=== PATIENT | female | born 1955 | race Caucasian/White ===

== ENCOUNTER 2018-06-11 11:05 | Emergency (ER) | payer MEDICARE, OTHER ==
[2018-06-11] MEDS ORDERED: IPRATROPIUM-ALBUTEROL 3 ML NEB INHALATION STA (11:13)
[2018-06-11] MEDS ORDERED: methylPREDNISolone SOD SUCCI 125 MG/2 ML VIAL IV STA (11:13)
[2018-06-11 11:19] VITALS: TEMP 98.3
--- NOTE | 2018-06-11 11:22 | ED ---
General Adult HPI - General Stated complaint: Chest pain Time Seen by Provider: 06/11/18 11:09 Source: patient, EMS, RN notes reviewed, old records reviewed Mode of arrival: EMS Limitations: no limitations - History of Present Illness Initial comments: 62-year-old female presenting with chief complaint dyspnea. Patient states she called EMS with chest tightness and dyspnea, she was found by EMS smoking in her car. She does have history of COPD and is a current daily smoker. She reports some central chest tightness. No significant chest pain. No reported history of CHF although she does report chronic lower extremity swelling and fluid drainage. Denies abdominal pain. Denies nausea vomiting or diarrhea. Denies cough. Denies URI symptoms. Denies fever or chills. - Related Data Home Medications Medication Instructions Recorded Confirmed Rivaroxaban [Xarelto] 20 mg PO DAILY 08/17/16 06/11/18 Tiotropium 18 Mcg/Puff [Spiriva] 1 puff INHALATION RT-DAILY 08/17/16 06/11/18 Albuterol Sulfate [Proair Hfa] 1 puff INHALATION RT-TID 06/10/18 06/11/18 Simvastatin [Zocor] 20 mg PO HS 06/10/18 06/11/18 clonazePAM [KlonoPIN] 1 mg PO TID PRN 06/10/18 06/11/18 oxyCODONE HCL 30 mg PO PC-TID 06/10/18 06/11/18 Fluticasone/Vilanterol [Breo 1 dose INHALATION RT-DAILY 06/11/18 06/11/18 Ellipta 100-25 Mcg Inhaler] Previous Rx's Medication Instructions Recorded Azithromycin [Zithromax Z-pack] 0 mg PO DIRECTED #6 tab 06/11/18 Allergies Allergy/AdvReac Type Severity Reaction Status Date / Time quetiapine [From Seroquel] AdvReac Severe Unusual Verified 06/11/18 12:36 Sensations Review of Systems ROS Statement: Those systems with pertinent positive or pertinent negative responses have been documented in the HPI. ROS Other: All systems not noted in ROS Statement are negative. Past Medical History Past Medical History: Cancer, COPD, Hyperlipidemia, Pulmonary Embolus (PE), Skin Disorder Additional Past Medical History / Comment(s): Degenerative disc disease, lumbar spinal stenosis cervical, skin CA, wound on katlyn legs History of Any Multi-Drug Resistant Organisms: None Reported Past Surgical History: No Surgical Hx Reported Past Anesthesia/Blood Transfusion Reactions: No Reported Reaction Past Psychological History: Bipolar Smoking Status: Current every day smoker Past Alcohol Use History: None Reported Past Drug Use History: Marijuana - Past Family History Mother Family Medical History: Cancer Additional Family Medical History / Comment(s): breast cancer Father Family Medical History: Cancer Additional Family Medical History / Comment(s): colon cancer General Exam Limitations: no limitations General appearance: alert, in no apparent distress Head exam: Present: atraumatic, normocephalic Eye exam: Present: normal appearance, PERRL ENT exam: Present: normal exam Neck exam: Present: normal inspection Respiratory exam: Present: decreased breath sounds, prolonged expiratory. Absent: respiratory distress Cardiovascular Exam: Present: regular rate, normal rhythm GI/Abdominal exam: Present: soft. Absent: distended, tenderness Extremities exam: Present: pedal edema ([place]). Absent: calf tenderness Neurological exam: Present: alert, oriented X3 Psychiatric exam: Present: normal affect, normal mood Skin exam: Present: warm. Absent: cyanosis, diaphoretic Course Vital Signs 06/11/18 06/11/18 06/11/18 11:08 11:38 11:45 Temperature 98.3 F Pulse Rate 79 62 62 Respiratory 22 Rate Blood Pressure 147/69 O2 Sat by Pulse 100 Oximetry 06/11/18 12:45 Temperature Pulse Rate 64 Respiratory 20 Rate Blood Pressure 144/64 O2 Sat by Pulse 98 Oximetry - Reevaluation(s) Reevaluation #1: 06/11/18 12:15 Patient presenting with dyspnea, refuse steroids, states that steroids give her a rash. EKG Findings - EKG Comments: EKG Findings:: EKG: Normal sinus rhythm, low voltage QRS, no ST segment elevation, rate of 66, PA interval 152, QRS duration 70, QTC 423 Medical Decision Making - Medical Decision Making 62-year-old female presenting with chief complaint of dyspnea. Workup is in progress in the emergency department with patient requests that she be discharged. At this time it is found that patient does have an anemia of 7.7 with previous baseline from 2 years ago of 12. She is in acute renal failure creatinine 2.43 from a baseline of 0.94. It is highly recommended that the patient stay for monitoring. I would like to obtain a Hemoccult, patient refuses. She wants to be discharged. She does not want stay for IV hydration. Chest x-ray is suggestive of possible interstitial pneumonia with COPD versus heart failure. Again patient is refusing admission despite all these abnormal findings. I will requests that the patient sign out AGAINST MEDICAL ADVICE. She will be given a a prescription of azithromycin to cover possible atypical pneumonias. Likely her dyspnea is multifactorial including anemia. She does have an outpatient primary care physician. Is highly encouraged the patient in follow up as soon as possible with this physician and return with any worsening or changing symptoms. - Lab Data Result diagrams: 06/11/18 11:50 06/11/18 11:50 Lab Results 06/11/18 06/11/18 06/11/18 Range/Units 11:50 11:50 11:50 WBC 4.9 (3.8-10.6) k/uL RBC 2.54 L (3.80-5.40) m/uL Hgb 7.7 L (11.4-16.0) gm/dL Hct 24.8 L (34.0-46.0) % MCV 97.5 (80.0-100.0) fL MCH 30.3 (25.0-35.0) pg MCHC 31.1 (31.0-37.0) g/dL RDW 16.4 H (11.5-15.5) % Plt Count 230 (150-450) k/uL Neutrophils % 56 % Lymphocytes % 34 % Monocytes % 6 % Eosinophils % 1 % Basophils % 1 % Neutrophils # 2.8 (1.3-7.7) k/uL Lymphocytes # 1.7 (1.0-4.8) k/uL Monocytes # 0.3 (0-1.0) k/uL Eosinophils # 0.1 (0-0.7) k/uL Basophils # 0.0 (0-0.2) k/uL Hypochromasia Moderate Anisocytosis Slight Macrocytosis Slight PT (9.0-12.0) sec INR (<1.2) APTT (22.0-30.0) sec Sodium 143 (137-145) mmol/L Potassium 4.1 (3.5-5.1) mmol/L Chloride 110 H (98-107) mmol/L Carbon Dioxide 25 (22-30) mmol/L Anion Gap 8 mmol/L BUN 27 H (7-17) mg/dL Creatinine 2.43 H (0.52-1.04) mg/dL Est GFR (CKD-EPI)AfAm 24 (>60 ml/min/1.73 sqM) Est GFR (CKD-EPI)NonAf 21 (>60 ml/min/1.73 sqM) Glucose 83 (74-99) mg/dL Plasma Lactic Acid Richard (0.7-2.0) mmol/L Calcium 8.3 L (8.4-10.2) mg/dL Magnesium 2.0 (1.6-2.3) mg/dL Total Bilirubin 0.6 (0.2-1.3) mg/dL AST 20 (14-36) U/L ALT 25 (9-52) U/L Alkaline Phosphatase 63 (38-126) U/L Total Creatine Kinase 41 (30-135) U/L CK-MB (CK-2) 1.2 (0.0-2.4) ng/mL CK-MB (CK-2) Rel Index 2.9 Troponin I 0.013 (0.000-0.034) ng/mL Total Protein 6.2 L (6.3-8.2) g/dL Albumin 3.3 L (3.5-5.0) g/dL 06/11/18 06/11/18 Range/Units 11:50 11:50 WBC (3.8-10.6) k/uL RBC (3.80-5.40) m/uL Hgb (11.4-16.0) gm/dL Hct (34.0-46.0) % MCV (80.0-100.0) fL MCH (25.0-35.0) pg MCHC (31.0-37.0) g/dL RDW (11.5-15.5) % Plt Count (150-450) k/uL Neutrophils % % Lymphocytes % % Monocytes % % Eosinophils % % Basophils % % Neutrophils # (1.3-7.7) k/uL Lymphocytes # (1.0-4.8) k/uL Monocytes # (0-1.0) k/uL Eosinophils # (0-0.7) k/uL Basophils # (0-0.2) k/uL Hypochromasia Anisocytosis Macrocytosis PT 10.8 (9.0-12.0) sec INR 1.1 (<1.2) APTT 25.4 (22.0-30.0) sec Sodium (137-145) mmol/L Potassium (3.5-5.1) mmol/L Chloride (98-107) mmol/L Carbon Dioxide (22-30) mmol/L Anion Gap mmol/L BUN (7-17) mg/dL Creatinine (0.52-1.04) mg/dL Est GFR (CKD-EPI)AfAm (>60 ml/min/1.73 sqM) Est GFR (CKD-EPI)NonAf (>60 ml/min/1.73 sqM) Glucose (74-99) mg/dL Plasma Lactic Acid Richard 1.2 (0.7-2.0) mmol/L Calcium (8.4-10.2) mg/dL Magnesium (1.6-2.3) mg/dL Total Bilirubin (0.2-1.3) mg/dL AST (14-36) U/L ALT (9-52) U/L Alkaline Phosphatase (38-126) U/L Total Creatine Kinase (30-135) U/L CK-MB (CK-2) (0.0-2.4) ng/mL CK-MB (CK-2) Rel Index Troponin I (0.000-0.034) ng/mL Total Protein (6.3-8.2) g/dL Albumin (3.5-5.0) g/dL Disposition Clinical Impression: Anemia, Community acquired pneumonia, COPD (chronic obstructive pulmonary disease), CHARLEY (acute kidney injury), Dehydration Disposition: Left Against Medical Advice Condition: Fair Instructions: Anemia (ED), COPD (Chronic Obstructive Pulmonary Disease) (ED), Pneumonia (ED), Acute Kidney Injury (DC) Prescriptions: Azithromycin [Zithromax Z-pack] 0 mg PO DIRECTED #6 tab Is patient prescribed a controlled substance at d/c from ED?: No Referrals: Basilio Love MD [Primary Care Provider] - 1-2 days Time of Disposition: 13:00
[2018-06-11 12:08] LABS: Anisocytosis Slight; Basophils % (A) 1 %; Eosinophils # (A) 0.1 k/uL (0-0.7); Eosinophils % (A) 1 %; HCT 24.8 % (34.0-46.0); HGB 7.7 gm/dL (11.4-16.0); Hypochromasia Moderate; Lymphocytes # (A) 1.7 k/uL (1.0-4.8); Lymphocytes % (A) 34 %; MCH 30.3 pg (25.0-35.0); MCHC 31.1 g/dL (31.0-37.0); MCV 97.5 fL (80.0-100.0); Macrocytosis Slight; Mean Platelet Volume 7.3; Monocytes # (A) 0.3 k/uL (0-1.0); Monocytes % (A) 6 %; Neutrophils # (A) 2.8 k/uL (1.3-7.7); Neutrophils % (A) 56 %; Platelet Count 230 k/uL (150-450); RBC 2.54 m/uL (3.80-5.40); RDW 16.4 % (11.5-15.5); WBC 4.9 k/uL (3.8-10.6)
[2018-06-11 12:16] LABS: INR 1.1 (<1.2); Partial Thromboplastin Time 25.4 sec (22.0-30.0); Prothrombin Time 10.8 sec (9.0-12.0)
[2018-06-11 12:19] LABS: Albumin 3.3 g/dL (3.5-5.0); Calcium 8.3 mg/dL (8.4-10.2); Potassium 4.1 mmol/L (3.5-5.1); Total Bilirubin 0.6 mg/dL (0.2-1.3); Total Protein 6.2 g/dL (6.3-8.2)
[2018-06-11 12:44] LABS: Creatine Kinase MB 1.2 ng/mL (0.0-2.4); Troponin I 0.013 ng/mL (0.000-0.034)
[2018-06-11 12:48] VITALS: BP 144/64; PULSE 64; RESP 20
--- NOTE | 2018-06-11 12:51 | XR ---
EXAMINATION TYPE: XR chest 2V DATE OF EXAM: 06/11/2018 HISTORY: difficulty breathing. REFERENCE: Previous study dated 08/17/2016. FINDINGS: Lung volumes are prominent. Heart is upper limits of normal in size. Pulmonary vasculature appears within normal limits. There is interstitial change. This was not present in 2016. IMPRESSION: 1. CORRELATE FOR COPD. 2. INTERSTITIAL CHANGE MAY BE ACUTE OR CHRONIC. THIS MAY REPRESENT PULMONARY EDEMA BASED UPON ABNORMA L LUNG ARCHITECTURE. ATYPICAL PNEUMONIA COULD NOT BE EXCLUDED.
== END 2018-06-11 13:09 | disposition left against medical advice (07) ==
LOC: EC 11:05
DX: J18.9 Pneumonia, unspecified organism (principal); J44.0 Chronic obstructive pulmonary disease with (acute) lower respiratory infection; E86.0 Dehydration; N17.9 Acute kidney failure, unspecified; D64.9 Anemia, unspecified; J44.9 Chronic obstructive pulmonary disease, unspecified; E78.5 Hyperlipidemia, unspecified; F17.200 Nicotine dependence, unspecified, uncomplicated; Z88.8 Allergy status to other drugs, medicaments and biological substances; Z79.01 Long term (current) use of anticoagulants; Z79.51 Long term (current) use of inhaled steroids; Z79.891 Long term (current) use of opiate analgesic; Z79.899 Other long term (current) drug therapy; Z86.711 Personal history of pulmonary embolism; Z87.39 Personal history of other diseases of the musculoskeletal system and connective tissue; Z53.20 Procedure and treatment not carried out because of patient's decision for unspecified reasons
CPT/HCPCS: 36415; 71046; 80053; 82550; 82553; 83605; 83735; 83880; 84484; 85025; 85610; 85730; 87040; 93005; 94640; 99285

== ENCOUNTER 2018-08-06 00:44 | Inpatient (IN) | payer MEDICARE, OTHER ==
[2018-08-06] MEDS ORDERED: SODIUM CHLORIDE 0.9% 500 ML 500 ML IV STA (00:57)
[2018-08-06] MEDS ORDERED: SODIUM CHLORIDE 0.9% 1,000 ML IV STA (00:57)
--- NOTE | 2018-08-06 00:58 | ED ---
Weakness HPI - General Stated complaint: Weakness Time Seen by Provider: 08/06/18 00:46 Source: RN notes reviewed, old records reviewed - History of Present Illness Initial comments: Patient is here for evaluation of weakness and inability to ambulate occasional fevers. Patient states she does not feel well she is eating and drinking appropriately. She is denying any current pain she states she does have some back pain that is chronic in nature. Mild dysuria she does have history of chronic wounds chronic venous stasis ulcers with active wound VAC MD Complaint: generalized weakness, lack of energy, difficulty walking -: days(s) Location: generalized, LLE, RLE Severity: severe Severity scale (1-10): 10 Quality: constant Improves with: none Worsens with: movement Context: recent illness, history of similar Associated Symptoms: denies other symptoms - Related Data Home Medications Medication Instructions Recorded Confirmed Albuterol Sulfate [Proair Hfa] 1 puff INHALATION RT-TID 06/10/18 08/01/18 Simvastatin [Zocor] 20 mg PO HS 06/10/18 08/01/18 clonazePAM [KlonoPIN] 1 mg PO TID PRN 06/10/18 08/01/18 oxyCODONE HCL 30 mg PO PC-TID 06/10/18 08/01/18 Fluticasone/Vilanterol [Breo 1 dose INHALATION RT-DAILY 06/11/18 08/01/18 Ellipta 100-25 Mcg Inhaler] Fluticasone/Vilanterol [Breo 1 puff INHALATION DAILY 07/12/18 08/01/18 Ellipta 100-25 Mcg Inhaler] Oxybutynin ER [Ditropan Xl] 15 mg PO DAILY 07/25/18 08/01/18 Previous Rx's Medication Instructions Recorded Amoxic-Pot Clav 500-125 mg 1 tab PO Q12HR #28 tab 07/12/18 [Augmentin 500-125 mg] Nicotine 7Mg/24Hr Patch [Habitrol] 1 patch TRANSDERM DAILY #30 07/12/18 patch.[id number] Allergies Allergy/AdvReac Type Severity Reaction Status Date / Time quetiapine [From Seroquel] AdvReac Severe Unusual Verified 08/01/18 10:42 Sensations Review of Systems ROS Statement: Those systems with pertinent positive or pertinent negative responses have been documented in the HPI. ROS Other: All systems not noted in ROS Statement are negative. Past Medical History Past Medical History: Cancer, COPD, Hyperlipidemia, Pulmonary Embolus (PE), Skin Disorder Additional Past Medical History / Comment(s): Degenerative disc disease, lumbar spinal stenosis cervical, skin CA, wound on katlyn legs History of Any Multi-Drug Resistant Organisms: None Reported Past Surgical History: No Surgical Hx Reported Additional Past Surgical History / Comment(s): surgical debridement left gluteus June 2018 Past Anesthesia/Blood Transfusion Reactions: No Reported Reaction Past Psychological History: Bipolar Smoking Status: Current every day smoker Past Alcohol Use History: None Reported Additional Past Alcohol Use History / Comment(s): smoker since age 15 10cig/day Past Drug Use History: Marijuana Additional Drug Use History / Comment(s): medical marijuana card - Past Family History Mother Family Medical History: Cancer Additional Family Medical History / Comment(s): breast cancer Father Family Medical History: Cancer Additional Family Medical History / Comment(s): colon cancer General Exam General appearance: alert, lethargic, in distress Head exam: Present: atraumatic, normocephalic, normal inspection Eye exam: Present: normal appearance, PERRL, EOMI. Absent: scleral icterus, conjunctival injection, periorbital swelling ENT exam: Present: normal exam, mucous membranes moist Neck exam: Present: normal inspection. Absent: tenderness, meningismus, lymphadenopathy Respiratory exam: Present: normal lung sounds bilaterally. Absent: respiratory distress, wheezes, rales, rhonchi, stridor Cardiovascular Exam: Present: regular rate, normal rhythm, normal heart sounds. Absent: systolic murmur, diastolic murmur, rubs, gallop, clicks GI/Abdominal exam: Present: soft, normal bowel sounds. Absent: distended, tenderness, guarding, rebound, rigid Extremities exam: Present: normal inspection, full ROM, normal capillary refill. Absent: tenderness, pedal edema, joint swelling, calf tenderness Back exam: Present: normal inspection Neurological exam: Present: alert, oriented X3, CN II-XII intact Psychiatric exam: Present: normal affect, normal mood Skin exam: Present: warm, dry, intact, normal color. Absent: rash Course Vital Signs 08/06/18 08/06/18 01:19 03:19 Temperature 97.9 F 97.3 F L Pulse Rate 86 82 Respiratory 18 18 Rate Blood Pressure 101/83 111/80 O2 Sat by Pulse 98 98 Oximetry - Reevaluation(s) Reevaluation #1: Record is reviewed Patient does not feel better at THIS time EKG Findings - EKG Comments: EKG Findings:: EKG shows sinus rhythm rate of 80, NC 180, QRS 80, QTC 461 Medical Decision Making - Medical Decision Making 62 female the ER for evasive weakness urinary tract infection fever not feeling well multiple electrolyte abnormalities and chronic ulcers. Patient be admitted for IV antibiotics and evaluation by infectious disease - Lab Data Result diagrams: 08/06/18 01:30 08/06/18 01:30 Lab Results 08/06/18 08/06/18 08/06/18 Range/Units 01:30 01:30 01:30 WBC 9.6 (3.8-10.6) k/uL RBC 3.14 L (3.80-5.40) m/uL Hgb 9.2 L D (11.4-16.0) gm/dL Hct 28.0 L (34.0-46.0) % MCV 89.3 D (80.0-100.0) fL MCH 29.2 (25.0-35.0) pg MCHC 32.7 (31.0-37.0) g/dL RDW 15.8 H (11.5-15.5) % Plt Count 273 (150-450) k/uL Neutrophils % 63 % Lymphocytes % 26 % Monocytes % 7 % Eosinophils % 2 % Basophils % 1 % Neutrophils # 6.1 (1.3-7.7) k/uL Lymphocytes # 2.5 (1.0-4.8) k/uL Monocytes # 0.7 (0-1.0) k/uL Eosinophils # 0.2 (0-0.7) k/uL Basophils # 0.1 (0-0.2) k/uL PT (9.0-12.0) sec INR (<1.2) APTT (22.0-30.0) sec Sodium 137 (137-145) mmol/L Potassium 3.6 (3.5-5.1) mmol/L Chloride 104 (98-107) mmol/L Carbon Dioxide 23 (22-30) mmol/L Anion Gap 10 mmol/L BUN 33 H (7-17) mg/dL Creatinine 2.39 H (0.52-1.04) mg/dL Est GFR (CKD-EPI)AfAm 24 (>60 ml/min/1.73 sqM) Est GFR (CKD-EPI)NonAf 21 (>60 ml/min/1.73 sqM) Glucose 100 H (74-99) mg/dL Plasma Lactic Acid Richard (0.7-2.0) mmol/L Calcium 9.0 (8.4-10.2) mg/dL Phosphorus 5.7 H (2.5-4.5) mg/dL Magnesium 2.4 H (1.6-2.3) mg/dL Total Bilirubin 0.4 (0.2-1.3) mg/dL AST 18 (14-36) U/L ALT 18 (9-52) U/L Alkaline Phosphatase 92 (38-126) U/L Total Creatine Kinase 32 (30-135) U/L CK-MB (CK-2) 0.3 (0.0-2.4) ng/mL CK-MB (CK-2) Rel Index 0.9 Troponin I <0.012 (0.000-0.034) ng/mL Total Protein 6.6 (6.3-8.2) g/dL Albumin 3.4 L (3.5-5.0) g/dL Urine Color Urine Appearance (Clear) Urine pH (5.0-8.0) Ur Specific [place] (1.001-1.035) Urine Protein (Negative) Urine Glucose (UA) (Negative) Urine Ketones (Negative) Urine Blood (Negative) Urine Nitrite (Negative) Urine Bilirubin (Negative) Urine Urobilinogen (<2.0) mg/dL Ur Leukocyte Esterase (Negative) Urine RBC (0-5) /hpf Urine WBC (0-5) /hpf Urine WBC Clumps (None) /hpf Ur Squamous Epith Cells (0-4) /hpf Urine Bacteria (None) /hpf Urine Mucus (None) /hpf Influenza Type A RNA (Not Detectd) Influenza Type B (PCR) (Not Detectd) 08/06/18 08/06/18 08/06/18 Range/Units 01:30 01:30 01:30 WBC (3.8-10.6) k/uL RBC (3.80-5.40) m/uL Hgb (11.4-16.0) gm/dL Hct (34.0-46.0) % MCV (80.0-100.0) fL MCH (25.0-35.0) pg MCHC (31.0-37.0) g/dL RDW (11.5-15.5) % Plt Count (150-450) k/uL Neutrophils % % Lymphocytes % % Monocytes % % Eosinophils % % Basophils % % Neutrophils # (1.3-7.7) k/uL Lymphocytes # (1.0-4.8) k/uL Monocytes # (0-1.0) k/uL Eosinophils # (0-0.7) k/uL Basophils # (0-0.2) k/uL PT 10.0 (9.0-12.0) sec INR 1.0 (<1.2) APTT 27.1 (22.0-30.0) sec Sodium (137-145) mmol/L Potassium (3.5-5.1) mmol/L Chloride (98-107) mmol/L Carbon Dioxide (22-30) mmol/L Anion Gap mmol/L BUN (7-17) mg/dL Creatinine (0.52-1.04) mg/dL Est GFR (CKD-EPI)AfAm (>60 ml/min/1.73 sqM) Est GFR (CKD-EPI)NonAf (>60 ml/min/1.73 sqM) Glucose (74-99) mg/dL Plasma Lactic Acid Richard 0.8 (0.7-2.0) mmol/L Calcium (8.4-10.2) mg/dL Phosphorus (2.5-4.5) mg/dL Magnesium (1.6-2.3) mg/dL Total Bilirubin (0.2-1.3) mg/dL AST (14-36) U/L ALT (9-52) U/L Alkaline Phosphatase (38-126) U/L Total Creatine Kinase (30-135) U/L CK-MB (CK-2) (0.0-2.4) ng/mL CK-MB (CK-2) Rel Index Troponin I (0.000-0.034) ng/mL Total Protein (6.3-8.2) g/dL Albumin (3.5-5.0) g/dL Urine Color Urine Appearance (Clear) Urine pH (5.0-8.0) Ur Specific [place] (1.001-1.035) Urine Protein (Negative) Urine Glucose (UA) (Negative) Urine Ketones (Negative) Urine Blood (Negative) Urine Nitrite (Negative) Urine Bilirubin (Negative) Urine Urobilinogen (<2.0) mg/dL Ur Leukocyte Esterase (Negative) Urine RBC (0-5) /hpf Urine WBC (0-5) /hpf Urine WBC Clumps (None) /hpf Ur Squamous Epith Cells (0-4) /hpf Urine Bacteria (None) /hpf Urine Mucus (None) /hpf Influenza Type A RNA Not Detected (Not Detectd) Influenza Type B (PCR) Not Detected (Not Detectd) 08/06/18 Range/Units 02:14 WBC (3.8-10.6) k/uL RBC (3.80-5.40) m/uL Hgb (11.4-16.0) gm/dL Hct (34.0-46.0) % MCV (80.0-100.0) fL MCH (25.0-35.0) pg MCHC (31.0-37.0) g/dL RDW (11.5-15.5) % Plt Count (150-450) k/uL Neutrophils % % Lymphocytes % % Monocytes % % Eosinophils % % Basophils % % Neutrophils # (1.3-7.7) k/uL Lymphocytes # (1.0-4.8) k/uL Monocytes # (0-1.0) k/uL Eosinophils # (0-0.7) k/uL Basophils # (0-0.2) k/uL PT (9.0-12.0) sec INR (<1.2) APTT (22.0-30.0) sec Sodium (137-145) mmol/L Potassium (3.5-5.1) mmol/L Chloride (98-107) mmol/L Carbon Dioxide (22-30) mmol/L Anion Gap mmol/L BUN (7-17) mg/dL Creatinine (0.52-1.04) mg/dL Est GFR (CKD-EPI)AfAm (>60 ml/min/1.73 sqM) Est GFR (CKD-EPI)NonAf (>60 ml/min/1.73 sqM) Glucose (74-99) mg/dL Plasma Lactic Acid Richard (0.7-2.0) mmol/L Calcium (8.4-10.2) mg/dL Phosphorus (2.5-4.5) mg/dL Magnesium (1.6-2.3) mg/dL Total Bilirubin (0.2-1.3) mg/dL AST (14-36) U/L ALT (9-52) U/L Alkaline Phosphatase (38-126) U/L Total Creatine Kinase (30-135) U/L CK-MB (CK-2) (0.0-2.4) ng/mL CK-MB (CK-2) Rel Index Troponin I (0.000-0.034) ng/mL Total Protein (6.3-8.2) g/dL Albumin (3.5-5.0) g/dL Urine Color Yellow Urine Appearance Cloudy H (Clear) Urine pH 5.0 (5.0-8.0) Ur Specific [place] 1.007 (1.001-1.035) Urine Protein Trace H (Negative) Urine Glucose (UA) Negative (Negative) Urine Ketones Negative (Negative) Urine Blood Large H (Negative) Urine Nitrite Positive H (Negative) Urine Bilirubin Negative (Negative) Urine Urobilinogen <2.0 (<2.0) mg/dL Ur Leukocyte Esterase Large H (Negative) Urine RBC 10 H (0-5) /hpf Urine WBC 54 H (0-5) /hpf Urine WBC Clumps Many H (None) /hpf Ur Squamous Epith Cells 2 (0-4) /hpf Urine Bacteria Few H (None) /hpf Urine Mucus Rare H (None) /hpf Influenza Type A RNA (Not Detectd) Influenza Type B (PCR) (Not Detectd) Disposition Clinical Impression: Dehydration, Venous stasis ulcers of both lower extremities, Weakness, Nausea and vomiting, ARF (acute renal failure), Fever, UTI (urinary tract infection) Disposition: ADMITTED IP TO THIS HOSP Condition: Fair Is patient prescribed a controlled substance at d/c from ED?: No
[2018-08-06 01:23] VITALS: RESP 18
[2018-08-06 01:53] LABS: Basophils # (A) 0.1 k/uL (0-0.2); Basophils % (A) 1 %; Eosinophils # (A) 0.2 k/uL (0-0.7); Eosinophils % (A) 2 %; Lymphocytes # (A) 2.5 k/uL (1.0-4.8); Lymphocytes % (A) 26 %; MCH 29.2 pg (25.0-35.0); MCHC 32.7 g/dL (31.0-37.0); Mean Platelet Volume 7.6; Monocytes # (A) 0.7 k/uL (0-1.0); Monocytes % (A) 7 %; Neutrophils # (A) 6.1 k/uL (1.3-7.7); Neutrophils % (A) 63 %; Platelet Count 273 k/uL (150-450); RBC 3.14 m/uL (3.80-5.40); RDW 15.8 % (11.5-15.5); WBC 9.6 k/uL (3.8-10.6)
[2018-08-06 01:54] LABS: HGB 9.2 gm/dL (11.4-16.0); MCV 89.3 fL (80.0-100.0)
--- NOTE | 2018-08-06 02:03 | XR ---
EXAMINATION TYPE: XR abdomen acute w cxr DATE OF EXAM: 08/06/2018 COMPARISON: NONE HISTORY: Weakness and pain TECHNIQUE: Chest x-ray with supine and upright abdomen FINDINGS: There is no heart failure nor confluent pneumonic infiltrate. Costophrenic angles are clear. Heart ap pears normal. Bowel gas pattern is normal. There is no sign of intestinal obstruction or pneumoperitoneum. Fecal pa ttern is normal. There are no pathologic calcifications over the kidneys. There is no evidence of an abdominal mass. IMPRESSION: Nonacute abdomen. No active cardiopulmonary disease.
[2018-08-06 02:05] LABS: Albumin 3.4 g/dL (3.5-5.0); Magnesium 2.4 mg/dL (1.6-2.3); Phosphorus 5.7 mg/dL (2.5-4.5); Potassium 3.6 mmol/L (3.5-5.1); Total Bilirubin 0.4 mg/dL (0.2-1.3); Total Protein 6.6 g/dL (6.3-8.2)
[2018-08-06 02:12] LABS: Partial Thromboplastin Time 27.1 sec (22.0-30.0)
[2018-08-06 02:37] LABS: Creatine Kinase 32 U/L (30-135)
[2018-08-06 02:41] LABS: Appearance,Urine Cloudy (Clear); Bacteria,Urine Few /hpf; Bilirubin,Urine Negative (Negative); Blood,Urine Large (Negative); Color,Urine Yellow; Glucose,Urine (UA) Negative (Negative); Ketones,Urine Negative (Negative); Leukocyte Esterase,Urine Large (Negative); Mucus,Urine Rare /hpf; Nitrite,Urine Positive (Negative); Protein,Urine Trace (Negative); RBC,Urine 10 /hpf (0-5); Specific Gravity,Urine 1.007 (1.001-1.035); Squamous Epithelial Cell,Urine 2 /hpf (0-4); Urobilinogen,Urine <2.0 mg/dL (<2.0)
[2018-08-06 02:48] LABS: Creatine Kinase MB 0.3 ng/mL (0.0-2.4); Troponin I <0.012 ng/mL (0.000-0.034)
[2018-08-06] MEDS ORDERED: SODIUM CHLORIDE 0.9% 1,000 ML IV ONE (02:49)
[2018-08-06 04:09] VITALS: BMI 34.3
[2018-08-06] MEDS ORDERED: cefTRIAXone 2,000 MG in SODIUM CHLORIDE 0.9% 100 ML IVPB STA (04:32)
[2018-08-06 07:59] VITALS: BP 94/58; PULSE 87; TEMP 98.3
[2018-08-06] MEDS ORDERED: ENOXAPARIN 40 MG/0.4 ML SYRINGE SQ SCH (09:00)
--- NOTE | 2018-08-06 09:39 | P.NPCON ---
History of Present Illness - Reason for Consult acute renal failure - History of Present Illness Reason for consultation: Acute kidney injury on chronic kidney disease History of present illness: Patient is a 62-year-old female seen in renal consultation for acute kidney injury on chronic kidney disease. Patient's creatinine in April 2018 was 1.3. She was then admitted to [facility] with anemia and hypotension and subsequently developed ATN. Her creatinine that admission peaked at 6.2 and then started to trend down. Creatinine this admission was 2.39. She is currently resting in bed. Denies chest pain or shortness of breath. Patient states she was weak and was having a fever. She does have lower extremity ulcerations and follows with infectious disease as an outpatient. She also has a wound VAC in place. She denies use of NSAIDs. No vomiting or diarrhea. Oral intake is fair. Admits to good urine output. No hematuria or dysuria. Hemodynamically stable. Blood pressure was on the lower side this morning. She did have a kidney biopsy done during her prior admission which revealed ATN and IgA nephropathy. Patient was also diagnosed with leukocytoclastic vasculitis several months ago for which she received prednisone for a few months with no significant improvement in her lesions. Vital signs are stable. General: The patient appeared well nourished and normally developed. HEENT: Head exam is unremarkable. Neck is without jugular venous distension. LUNGS: Lungs are clear to auscultation and percussion. Breath sounds decreased. HEART: Rate and Rhythm are regular. First and second heart sounds normal. No murmurs, rubs or gallops. ABDOMEN: Abdominal exam reveals normal bowel sounds. Non-tender and non- distended. No evidence of peritonitis. EXTREMITITES: No clubbing, cyanosis, or edema. Ulcerations and erythema in lower extremities noted. No obvious drainage. Past Medical History Past Medical History: Cancer, COPD, Hyperlipidemia, Pulmonary Embolus (PE), Skin Disorder Additional Past Medical History / Comment(s): Degenerative disc disease, lumbar spinal stenosis cervical, skin CA, wound on katlyn legs History of Any Multi-Drug Resistant Organisms: None Reported Past Surgical History: No Surgical Hx Reported Additional Past Surgical History / Comment(s): surgical debridement left gluteus June 2018 Past Anesthesia/Blood Transfusion Reactions: No Reported Reaction Past Psychological History: Bipolar Smoking Status: Current every day smoker Past Alcohol Use History: None Reported Additional Past Alcohol Use History / Comment(s): smoker since age 15 10cig/day Past Drug Use History: Marijuana Additional Drug Use History / Comment(s): medical marijuana card - Past Family History Mother Family Medical History: Cancer Additional Family Medical History / Comment(s): breast cancer Father Family Medical History: Cancer Additional Family Medical History / Comment(s): colon cancer Medications and Allergies Home Medications Medication Instructions Recorded Confirmed Type Albuterol Sulfate [Proair Hfa] 1 puff INHALATION RT-TID 06/10/18 08/01/18 History Simvastatin [Zocor] 20 mg PO HS 06/10/18 08/01/18 History clonazePAM [KlonoPIN] 1 mg PO TID PRN 06/10/18 08/01/18 History oxyCODONE HCL 30 mg PO PC-TID 06/10/18 08/01/18 History Fluticasone/Vilanterol [Breo 1 dose INHALATION RT-DAILY 06/11/18 08/01/18 History Ellipta 100-25 Mcg Inhaler] Amoxic-Pot Clav 500-125 mg 1 tab PO Q12HR #28 tab 07/12/18 Rx [Augmentin 500-125 mg] Fluticasone/Vilanterol [Breo 1 puff INHALATION DAILY 07/12/18 08/01/18 History Ellipta 100-25 Mcg Inhaler] Nicotine 7Mg/24Hr Patch [Habitrol] 1 patch TRANSDERM DAILY #30 07/12/18 Rx patch.td24 Oxybutynin ER [Ditropan Xl] 15 mg PO DAILY 07/25/18 08/01/18 History Allergies Allergy/AdvReac Type Severity Reaction Status Date / Time quetiapine [From Seroquel] AdvReac Severe Unusual Verified 08/01/18 10:42 Sensations Physical Exam Vitals: Vital Signs Temp Pulse Pulse Resp BP BP Pulse Ox 08/06/18 07:58 98.3 F 87 18 94/58 95 08/06/18 03:55 97.2 F L 89 18 138/61 95 08/06/18 03:19 97.3 F L 82 18 111/80 98 08/06/18 01:19 97.9 F 86 18 101/83 98 Intake and Output 08/05/18 08/06/18 08/06/18 22:59 06:59 14:59 Output Total 350 Balance -350 Output: Urine 350 Other: Voiding Method Bedside Commode # Voids 1 Weight 105.5 kg Results - Lab Results Most recent lab results Calcium 9.0 mg/dL (8.4-10.2) 08/06/18 01:30 Phosphorus 5.7 mg/dL (2.5-4.5) H 08/06/18 01:30 Magnesium 2.4 mg/dL (1.6-2.3) H 08/06/18 01:30 08/06/18 01:30 08/06/18 01:30 Assessment and Plan Plan: Assessment: 1. Acute kidney injury secondary to nonrecovered ATN. Creatinine 2.39 today. This may be her new baseline. 2. Chronic kidney disease stage III with creatinine 1.3 in April 2018. Etiology is IgA nephropathy and nonrecovered ATN which is biopsy-proven. 3. Lower extremity ulcerations being followed by infectious disease. 4. Anemia of chronic kidney disease. Rule out iron deficiency. 5. UTI. Urine culture pending. 6. Hyperphosphatemia secondary to acute kidney injury. Plan: Maintain normal saline at 100 mL an hour. Encourage oral intake. Check iron studies. Quantify proteinuria. Add Renvela with meals. Repeat electrolytes in the morning. Thank you for the consultation. I will continue to follow the patient with you during her hospital stay.
[2018-08-06] MEDS ORDERED: SEVELAMER 800 MG TAB PO SCH (12:30)
[2018-08-06 17:35] LABS: Iron Saturation 8.11 (12.00-45.00)
--- NOTE | 2018-08-09 21:28 | HP ---
HISTORY AND PHYSICAL HISTORY AND PHYSICAL EXAMINATION/DISCHARGE SUMMARY: This is a combination history and physical and discharge summary of Mary Gaitan HISTORY OF PRESENT ILLNESS: This 62-year-old woman was admitted with features of acute kidney injury with chronic kidney disease, but however the patient left the hospital against medical advice before being seen. Please refer to the multiple Nephrology notes as well as ER notes and multiple staff notes for further information. Prognosis remains guarded. Patient is not willing to stay. MMODL / IJN: [id number] /
== END 2018-08-06 11:15 | disposition left against medical advice (07) | DRG 683 ==
LOC: EC 00:44 → INTOOBSV 02:49 → 4SSUR 02:49 → OBSVTOIN 02:49 → 4SSUR 03:29
PROVIDERS: ADMIT Hospitalist; ATTEND Hospitalist
DX: N17.0 Acute kidney failure with tubular necrosis (principal); N39.0 Urinary tract infection, site not specified; L97.929 Non-pressure chronic ulcer of unspecified part of left lower leg with unspecified severity; L97.919 Non-pressure chronic ulcer of unspecified part of right lower leg with unspecified severity; E86.0 Dehydration; F17.210 Nicotine dependence, cigarettes, uncomplicated; F31.9 Bipolar disorder, unspecified; M51.36 Other intervertebral disc degeneration, lumbar region; M48.02 Spinal stenosis, cervical region; E83.39 Other disorders of phosphorus metabolism; D63.1 Anemia in chronic kidney disease; E78.5 Hyperlipidemia, unspecified; J44.9 Chronic obstructive pulmonary disease, unspecified; C44.90 Unspecified malignant neoplasm of skin, unspecified; N02.8 Recurrent and persistent hematuria with other morphologic changes; N18.3 Chronic kidney disease, stage 3 (moderate); Z80.0 Family history of malignant neoplasm of digestive organs; Z80.3 Family history of malignant neoplasm of breast; Z79.51 Long term (current) use of inhaled steroids; Z79.899 Other long term (current) drug therapy; Z88.8 Allergy status to other drugs, medicaments and biological substances; Z86.711 Personal history of pulmonary embolism
CPT/HCPCS: 36415; 74022; 80053; 81001; 82550; 82553; 82728; 83540; 83550; 83605; 83735; 84100; 84484; 85025; 85610; 85730; 87040; 87077; 87086; 87186; 87502; 93005; 96360; 99285

== ENCOUNTER → 2019-01-25 | Outpatient (CLI) | payer MEDICARE, OTHER ==
--- NOTE | 2019-01-25 15:08 | CT ---
EXAMINATION TYPE: CT lumbar spine wo con DATE OF EXAM: 01/25/2019 COMPARISON: HISTORY: low back pain X many years, no recent injury CT DLP: [address] of the lumbar spine was performed. Bone and soft tissue window settings are submitted as well as coronal and sagittal reconstructions. L1-L2: Normal disc space height. No disc herniation protrusion or central stenosis. No facet joint arthropathy. No evidence for foraminal encroachment. L2-L3: Normal disc space height. No disc herniation protrusion or central stenosis. No facet joint arthropathy. No evidence for foraminal encroachment. L3-L4: Chronic superior endplate compression fracture of the L4. Mild degenerative disc space narrowi ng posterior disc bulges effacement ventral thecal sac. Bilateral lateral recess stenosis. No evidenc e for central stenosis. Foramina are patent. L4-L5: Severe degenerative disc space narrowing and vacuum disc. Posterior disc bulge with partial en capsulating spur resulting in bilateral lateral recess stenosis and bilateral foraminal encroachment. No evidence for central stenosis. L5-S1: Severe degenerative disc space narrowing with vacuum disc. Posterior disc bulge without reynaldo herniation or central stenosis. No evidence for lateral recess stenosis. Facet joint arthropathy with bilateral foraminal encroachment right greater than left. No paraspinal masses are identified. Lumbar segments are free if fracture. IMPRESSION: 1. Multilevel degenerative disc disease with disc bulging and lateral recess stenosis as outlined abo ve.
== END ==
LOC: RADCTMAIN 14:28
PROVIDERS: ATTEND Family Medicine
DX: M54.5 Low back pain (principal); M48.061 Spinal stenosis, lumbar region without neurogenic claudication; M48.07 Spinal stenosis, lumbosacral region; M51.36 Other intervertebral disc degeneration, lumbar region; M51.37 Other intervertebral disc degeneration, lumbosacral region
CPT/HCPCS: 72131

== ENCOUNTER 2019-10-27 13:14 | Emergency (ER) | payer MEDICARE, OTHER ==
[2019-10-27] MEDS ORDERED: HYDROmorphone 0.5 MG/0.5 ML SYRINGE IM STA (13:42)
--- NOTE | 2019-10-27 15:24 | XR ---
EXAMINATION TYPE: XR Hip LT and AP Pelvis DATE OF EXAM: 10/27/2019 COMPARISON: None HISTORY: Left hip pain following fall TECHNIQUE: AP pelvis views left hip FINDINGS: Joint spaces preserved. Femoral head articulates with the acetabulum. No acute fracture or dislocation is evident. Pelvis appears normal. IMPRESSION: 1. Normal pelvis and left hip. 2. CT could be performed for sufficient clinical suspicion left hip abnormality. 3. Follow-up exams can be performed for continued pain.
--- NOTE | 2019-10-27 15:50 | ED ---
Back Pain HPI - General Chief Complaint: Back Pain/Injury Stated Complaint: fall Time Seen by Provider: 10/27/19 13:25 Source: EMS Limitations: altered mental status - History of Present Illness Initial Comments: 63-year-old female presenting today for chief complaint of pain radiating down left anterior leg. Patient states that she had a laminectomy approximately 15 days ago performed by Dr. Moreno at [facility]. Patient states that she had some sharp shooting pain down the anterior leg that was less frequent status post the operation. 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 She states that she had a slightly increase the sharp shooting pain down the anterior leg that increases with movement. Patient states she was able to walk and ambulate she called EMS to have it evaluated wanted to make sure that she had not displace anything. Patient denies any loss of bowel bladder control urinary retention and inability ambulate loss of sensation. Patient states she has occasional tingling sensation but can fully feel the extremity. Patient denies any fevers chills or flulike symptoms status post the operation remaining review of system negative and upon arrival patient appears well signs of acute distress - Related Data Home Medications Medication Instructions Recorded Confirmed Albuterol Sulfate [Proair Hfa] 1 puff INHALATION RT-TID 06/10/18 12/26/18 Simvastatin [Zocor] 20 mg PO HS 06/10/18 12/26/18 clonazePAM [KlonoPIN] 1 mg PO TID PRN 06/10/18 12/26/18 Fluticasone/Vilanterol [Breo 1 dose INHALATION RT-DAILY 06/11/18 12/26/18 Ellipta 100-25 Mcg Inhaler] Fluticasone/Vilanterol [Breo 1 puff INHALATION DAILY 07/12/18 12/26/18 Ellipta 100-25 Mcg Inhaler] Pregabalin [Lyrica] 200 mg PO TID 08/22/18 12/26/18 Baclofen 10 mg PO TID 10/24/18 12/26/18 Varenicline [Chantix Starter Pack] 0.5 mg PO DIRECTED 10/24/18 12/26/18 Ergocalciferol (Vitamin D2) 50,000 unit PO DAILY 11/14/18 12/26/18 [Vitamin D2] Oxybutynin [Oxytrol For Women] 1 patch TRANSDERM Q84H 11/14/18 12/26/18 oxyCODONE HCL/ACETAMINOPHEN 1 tab PO Q8HR PRN 12/12/18 12/26/18 [Percocet 10-325 mg] Allergies Allergy/AdvReac Type Severity Reaction Status Date / Time quetiapine [From Seroquel] AdvReac Severe Unusual Verified 12/26/18 09:41 Sensations Review of Systems ROS Statement: Those systems with pertinent positive or pertinent negative responses have been documented in the HPI. ROS Other: All systems not noted in ROS Statement are negative. Past Medical History Past Medical History: Cancer, COPD, Hyperlipidemia, Pulmonary Embolus (PE), Skin Disorder Additional Past Medical History / Comment(s): Degenerative disc disease, lumbar spinal stenosis cervical, skin CA, wound on katlyn legs History of Any Multi-Drug Resistant Organisms: None Reported Past Surgical History: No Surgical Hx Reported, Back Surgery Additional Past Surgical History / Comment(s): surgical debridement left gluteus June 2018 Past Anesthesia/Blood Transfusion Reactions: No Reported Reaction Past Psychological History: Bipolar Smoking Status: Former smoker Past Alcohol Use History: None Reported Past Drug Use History: Marijuana - Past Family History Mother Family Medical History: Cancer Additional Family Medical History / Comment(s): breast cancer Father Family Medical History: Cancer Additional Family Medical History / Comment(s): colon cancer General Exam - General Exam Comments Initial Comments: SorryGeneral: The patient is awake and alert, in no distress, and does not appear acutely ill. Eye: +3 mm pupils are equal, round and reactive to light, extra-ocular movements are intact. No nystagmus. There is normal conjunctiva bilaterally. No signs of icterus. Ears, nose, mouth and throat: There are moist mucous membranes and no oral lesions. Neck: The neck is supple, there is no tenderness or JVD. Cardiovascular: There is a regular rate and rhythm. No murmur, rub or gallop is appreciated. Respiratory: Lungs are clear to auscultation, respirations are non-labored, breath sounds are equal. No wheezes, stridor, rales, or rhonchi. Gastrointestinal: Soft, non-distended, non-tender abdomen without masses or organomegaly noted. There is no rebound or guarding present. No CVA tenderness. Bowel sounds are unremarkable. Musculoskeletal: Inspection of the lumbar spine there is an incision midline over lumbar spine, no drainage, or redness. Steri strips in place. No tenderness to palpation or warmth. Normal ROM, no tenderness of the right LE, + SLR of the left leg (minor) Strength 5/5 of the LE b/l. Sensation intact of the LE b/l. Radial pulses equal bilaterally 2+. Neurological: A&O x 3. CN II-XII intact grossly, There are no obvious motor or sensory deficits. Coordination appears grossly intact. Speech is normal. Skin: Skin is warm and dry and no rashes or lesions are noted. Psychiatric: Cooperative, appropriate mood & affect, normal judgment. Limitations: altered mental status Course Vital Signs 10/27/19 10/27/19 13:20 16:44 Temperature 97.8 F 98.2 F Pulse Rate 77 91 Respiratory 19 20 Rate Blood Pressure 109/61 112/78 O2 Sat by Pulse 98 97 Oximetry Medical Decision Making - Medical Decision Making C3-year-old female presenting for left leg pain increasing after fall. Present postop. No fevers no flulike or constitutional symptoms. Patient has no leukocytosis. Patient had normal incision site findings. Consistent with postoperative status. CT wo contrast obtained given history of fall with recent surgical procedure. Patient wanted to leave prior to discussing CT results with Dr. Beckham. I discussed the risk of this being infection although this was low on my ddx given history, VS and PE findings. Patient states she is aware that if she leave that her condition could a causing paralysis and even . She is return parameters for fevers or increasing pain I recommend she call Dr. Beckham on Wednesday to discuss CT results and visit. I was able after patient did leave against medical diagnostic radiographer to speak with Dr. Beckham I discussed verbatim the CT results he is agreeable to discharge with outpatient follow-up. I did discuss incidental findings with patient including possible calcified AAA that appears stable. Recommend outpatient PCP f/u with vascular consult. I left for patient to discuss the CT results discussion I have with Dr. Beckham-- patient was provided return phone number. - Lab Data Result diagrams: 10/27/19 16:40 Lab Results 10/27/19 Range/Units 16:40 WBC 9.6 (3.8-10.6) k/uL RBC 4.11 (3.80-5.40) m/uL Hgb 12.8 (11.4-16.0) gm/dL Hct 38.9 (34.0-46.0) % MCV 94.8 (80.0-100.0) fL MCH 31.2 (25.0-35.0) pg MCHC 32.9 (31.0-37.0) g/dL RDW 12.3 (11.5-15.5) % Plt Count 370 (150-450) k/uL Neutrophils % 54 % Lymphocytes % 35 % Monocytes % 5 % Eosinophils % 2 % Basophils % 1 % Neutrophils # 5.2 (1.3-7.7) k/uL Lymphocytes # 3.4 (1.0-4.8) k/uL Monocytes # 0.4 (0-1.0) k/uL Eosinophils # 0.2 (0-0.7) k/uL Basophils # 0.1 (0-0.2) k/uL Disposition Clinical Impression: Low back pain, Fall Disposition: Left Against Medical Advice Condition: Undetermined Additional Instructions: Please call neurosurgeon on Wednesday--if develop fever must come back. Please return to emergency room if the symptoms increase or worsen or for any other concerns. Referrals: Edwardo Sanchez MD [Primary Care Provider] - 1-2 days Time of Disposition: 16:28
--- NOTE | 2019-10-27 16:03 | CT ---
EXAMINATION TYPE: CT lumbar spine wo con DATE OF EXAM: 10/27/2019 3:00 PM COMPARISON: 01/25/2019 HISTORY: low back pain post fall, recent surgery CT DLP: 1409.6 mGycm Automated exposure control for dose reduction was used. Unenhanced CT of the lumbar spine was performed. Bone and soft tissue window settings are submitted as well as coronal and sagittal reconstructions. L1-L2: Mild degenerative disc disease with circumferential disc bulging and facet arthropathy. L2-L3: Normal disc space height. No disc herniation protrusion or central stenosis. No facet joint arthropathy. No evidence for foraminal encroachment. Circumferential disc bulging and facet arthropa thy noted. Could not exclude canal stenosis. Neural foramina appear to be patent. Congenital transver se process segmentation defect noted. L3-L4: Moderate degenerative disc disease with facet arthropathy and central disc diffuse bulging. Martinez spect canal stenosis and bilateral foraminal encroachment. L4-L5: Chronic appearing deformity of the superior endplate with severe degenerative disc disease. Di ffuse disc bulging with facet arthropathy and ligamentum flavum hypertrophy. Suspect bilateral forami nal encroachment and canal stenosis. L5-S1: Severe degenerative disc space narrowing with vacuum disc. Posterior disc bulge without reynaldo herniation or central stenosis. No evidence for lateral recess stenosis. Facet joint arthropathy with bilateral foraminal encroachment right greater than left. There is a unilateral pars defect on the l eft which appears new from the prior exam. Abnormal attenuation along the left margin of the thecal s ac suggests surgery. MRI is recommended as the attenuation is identical to the thecal sac. Cannot det ermine if this is postinfectious, postsurgical scar or hematoma. Aorta of normal caliber. Vascular calcifications are seen. Eccentric calcification within the distal aorta results in severe stenosis at the level of L3-L4. 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 IMPRESSION: 1. There is apparent left-sided laminectomy or pars defect of L5 which is new from the prior exam. Ab normal soft tissue attenuation in the posterior subcutaneous tissues extending to the left margin of the spinal canal and left neural foramina is indeterminate by noncontrast CT scan would require MRI f or further evaluation. Could be postsurgical, hematoma or infectious etiology, correlate clinically. 2. Multilevel degenerative disc disease with disc bulging and facet arthropathy and multilevel canal stenosis suspected. Correlate clinically. 3. Severe distal abdominal aorta atherosclerotic stenosis. Eccentric plaque and possible chronic loca lized calcified dissection is stable from prior exam. Correlate clinically.
[2019-10-27 16:46] VITALS: BP 112/78; PULSE 91; RESP 20; TEMP 98.2
[2019-10-27 17:24] LABS: Basophils # (A) 0.1 k/uL (0-0.2); Basophils % (A) 1 %; Eosinophils # (A) 0.2 k/uL (0-0.7); Eosinophils % (A) 2 %; HCT 38.9 % (34.0-46.0); HGB 12.8 gm/dL (11.4-16.0); Lymphocytes # (A) 3.4 k/uL (1.0-4.8); Lymphocytes % (A) 35 %; MCH 31.2 pg (25.0-35.0); MCHC 32.9 g/dL (31.0-37.0); MCV 94.8 fL (80.0-100.0); Mean Platelet Volume 8.3; Monocytes # (A) 0.4 k/uL (0-1.0); Monocytes % (A) 5 %; Neutrophils # (A) 5.2 k/uL (1.3-7.7); Neutrophils % (A) 54 %; Platelet Count 370 k/uL (150-450); RBC 4.11 m/uL (3.80-5.40); RDW 12.3 % (11.5-15.5); WBC 9.6 k/uL (3.8-10.6)
== END 2019-10-27 16:46 | disposition left against medical advice (07) ==
LOC: EC 13:14
DX: M54.5 Low back pain (principal); E78.5 Hyperlipidemia, unspecified; F31.9 Bipolar disorder, unspecified; Z79.51 Long term (current) use of inhaled steroids; Z79.899 Other long term (current) drug therapy; Z88.8 Allergy status to other drugs, medicaments and biological substances; Z87.891 Personal history of nicotine dependence; Z85.828 Personal history of other malignant neoplasm of skin
CPT/HCPCS: 36415; 85025; 73502; 72131; 99284; 96372; J1170

== ENCOUNTER → 2019-11-03 | Outpatient (CLI) | payer MEDICARE, OTHER ==
--- NOTE | 2019-11-03 11:58 | XR ---
EXAMINATION TYPE: XR lumbar spine 2 or 3V DATE OF EXAM: 11/03/2019 CLINICAL HISTORY: Low back pain. History of L5 laminectomy and L5-S1 foraminotomies TECHNIQUE: Frontal and lateral images of the lumbar spine are obtained. COMPARISON: None FINDINGS: There are 5 lumbar type vertebral bodies identified. There is L4 vertebral body compressio n deformity with anterior vertebral body height loss of approximately 40%. Moderate degenerative payne ges of the lumbar spine are also seen as well as multilevel facet arthropathy, anterior and posterior projecting osteophytes, intervertebral disc space nearing, endplate sclerosis and vacuum disc diseas e. Severe atherosclerosis of the abdominal aorta. Diffuse osseous demineralization. IMPRESSION: 1. L4 compression deformity is unchanged from the recent CT of 10/27/2019. No new vertebral body height loss or malalignment of the lumbar spine. 2. Moderate multilevel degenerative change of the spine. Diffuse osseous demineralization. 3. Extensive atherosclerosis of the abdominal aorta.
== END | disposition home or self-care (01) ==
LOC: RADXRMAIN 10:46
DX: M47.816 Spondylosis without myelopathy or radiculopathy, lumbar region (principal); M81.8 Other osteoporosis without current pathological fracture; M43.8X6 Other specified deforming dorsopathies, lumbar region; Z98.890 Other specified postprocedural states
CPT/HCPCS: 72100

== ENCOUNTER 2020-06-12 08:01 | Day surgery (SDC) | payer MEDICARE, OTHER ==
[2020-06-10 15:55] VITALS: BMI 37.9
[~2020-06-12 08:01] MED LIST: DEXAMETHASONE SOD PHOSPHATE 10 MG/ML 1 ML VIAL IV ONE; LACTATED RINGERS 1,000 ML IV SCH; MIDAZOLAM 2 MG/2 ML VIAL IV PRN; MOXIFLOXACIN HCL 0.5% DROPS 3 ML BTL OP ONE; ONDANSETRON 4 MG/2 ML VIAL IVP ONE; SCOPOLAMINE 1.5MG/72HR PATCH TRANSDERM ONE; TETRACAINE 0.5% OPHTH (PF) DROPS 4 ML BTL OP ONE; TIMOLOL 0.5% OPHTH DROPS 5 ML BTL OP ONE; fentaNYL (PF) 50 MCG/ML 2 ML AMP IV PRN; fentaNYL (PF) 50 MCG/ML 2 ML AMP IVP PRN
[2020-06-12 08:28] VITALS: RESP 16; TEMP 97.1
[2020-06-12] MEDS: CYCLOPENTOLATE 1% OPHTH SOLN 2 ML BTL OP ONE ×3 (08:37→08:50)
[2020-06-12] MEDS: PHENYLEPHRINE 2.5% OPHTH DRP 2ML OP NR ×3 (08:40→08:53)
[2020-06-12] MEDS ORDERED: MIDAZOLAM 2 MG/2 ML VIAL ONE (09:07)
[2020-06-12] MEDS ORDERED: fentaNYL (PF) 50 MCG/ML 2 ML AMP ONE (09:07)
[2020-06-12] MEDS ORDERED: EPINEPHrine (PF) 0.3 ML in BALANCED SALT IRRIG SOLN COMB2 500 ML IRRIGATION ONE (09:10)
[2020-06-12] MEDS ORDERED: BALANCED SALT IRRIG SOLN COMB2 15 ML IRRIG.SOLN IRRIGATION ONE (09:15)
[2020-06-12] MEDS ORDERED: LIDOCAINE 1% (PF) 10MG/ML VIAL MISCELLANE ONE (09:15)
[2020-06-12] MEDS ORDERED: HYALURONATE SODIUM INTRAOCULAR 1 EACH SYRINGE (12MG/ML) INTRAOCULA ONE (09:15)
--- NOTE | 2020-06-12 09:32 | P.OP ---
Date of Procedure: 06/12/20 Preoperative Diagnosis: NS & CS Postoperative Diagnosis: same Procedure(s) Performed: PIOL, OS Implants: [id number] 18.50 Anesthesia: MAC Designated Broker #1: Ede Bradley Pathology: none sent Condition: stable Disposition: same day Indications for Procedure: blurry vision Operative Findings: No complications
[2020-06-12 10:01] VITALS: BP 122/66; PULSE 56
--- NOTE | 2020-06-13 06:31 | OP ---
OPERATIVE REPORT DATE OF SURGERY: 06/12/2020 PREOPERATIVE DIAGNOSIS: Nuclear sclerosis and cortical sclerosis. POSTOPERATIVE DIAGNOSIS: Nuclear sclerosis and cortical sclerosis. OPERATION: Phacoemulsification of cataract and Bausch and Lomb implant of the left eye. NARRATIVE: After obtaining the appropriate consent, the patient was brought to the operating room. There the patient was placed under cardiac monitoring, prepped and draped in the usual sterile manner. The patient was approached from the left temporal side. The mm Christina ring inked in gentian nate was placed centrally on the cornea. At the 11 o'clock position, a 1.1 mm keratome was used to create a paracentesis port. Through this opening, 1% Xylocaine MPF 50/50 mix with balanced salt solution was injected into the anterior chamber. This was followed by stabilization of the anterior chamber with Amvisc viscoelastic. At the 9 o'clock position, a 2.75 mm alfonzo keratome was used to create a self-scaling corneal flap incision in a Langerman fashion. Through this opening, a cystotome was introduced to begin a continuous tear capsulorrhexis which was completed using the Utrata forceps. Care was taken to ensure that the capsulorrhexis was at least the size of the yue on the anterior cornea. Hydrodissection and hydrodelineation of the lens was accomplished with balanced salt solution. Phacoemulsification of the lens utilizing phaco chop was accomplished in 8.9 Seconds at 14% power. Addition Xylocaine MPF was instilled into the anterior chamber. This was followed by removal of the remaining cortex under irrigation and aspiration along with careful polishing of the posterior capsule in a capsule vacuum mode. Additional Amvisc viscoelastic was then used to stabilize the capsular bag, and the Bausch and Lomb MX60E 18.5 diopters intraocular lens was injected into the capsular bag without difficulty. The lens was rotated 270 degrees so that the haptics resided at the 6 and 12 o'clock positions, and all remaining viscoelastic was then removed from within the capsular bag and around the anterior chamber. The eye was brought to normal intraocular pressure through the paracentesis port along with slight hydration of the incision sites. Watertight integrity was confirmed using a fluorescein strip. The patient then received 2 drops of 0.5% timolol followed by 2 drops of Vigamox and 2 drops of 1% atropine. The patient was then lightly patched and shielded in the usual manner. There was no complications from the procedure. The patient tolerated the procedure well and was returned to outpatient recovery in good condition. VEL / COSMEN: [id number] /
== END 2020-06-12 10:20 | disposition home or self-care (01) ==
LOC: OR 08:01
PROVIDERS: ATTEND Ophthalmology
DX: H25.13 Age-related nuclear cataract, bilateral (principal); H25.013 Cortical age-related cataract, bilateral; H52.4 Presbyopia; E78.5 Hyperlipidemia, unspecified; J44.9 Chronic obstructive pulmonary disease, unspecified; K21.9 Gastro-esophageal reflux disease without esophagitis; F41.9 Anxiety disorder, unspecified; Z88.8 Allergy status to other drugs, medicaments and biological substances; Z79.899 Other long term (current) drug therapy; Z98.890 Other specified postprocedural states; Z79.891 Long term (current) use of opiate analgesic; Z83.3 Family history of diabetes mellitus; Z83.518 Family history of other specified eye disorder; Z97.3 Presence of spectacles and contact lenses
CPT/HCPCS: 66984; C1780; J2250; J0171; J3010; J2001

== ENCOUNTER 2020-07-17 07:18 | Day surgery (SDC) | payer MEDICARE, OTHER ==
[2020-07-12 14:19] VITALS: BMI 39.0
[~2020-07-17 07:18] MED LIST changes: -DEXAMETHASONE SOD PHOSPHATE 10 MG/ML 1 ML VIAL IV ONE; -MIDAZOLAM 2 MG/2 ML VIAL IV PRN; -ONDANSETRON 4 MG/2 ML VIAL IVP ONE; +ONDANSETRON 4 MG/2 ML VIAL IVP PRN; -SCOPOLAMINE 1.5MG/72HR PATCH TRANSDERM ONE; +TOBRA-DEXAMET 0.3-0.1% OPHTH DROPS 2.5 ML BTL OPHTHALMIC NR; -fentaNYL (PF) 50 MCG/ML 2 ML AMP IVP PRN
[2020-07-17] MEDS: PHENYLEPHRINE 2.5% OPHTH DRP 2ML OP NR ×3 (07:56→08:14)
[2020-07-17 07:58] VITALS: TEMP 97.5
[2020-07-17] MEDS: CYCLOPENTOLATE 1% OPHTH SOLN 2 ML BTL OP ONE ×3 (08:02→08:18)
[2020-07-17] MEDS ORDERED: LIDOCAINE 1% (10MG/ML) FOR IV START INTRADERMA ONE (08:13)
[2020-07-17] MEDS ORDERED: fentaNYL (PF) 50 MCG/ML 2 ML AMP ONE (08:39)
[2020-07-17] MEDS ORDERED: MIDAZOLAM 2 MG/2 ML VIAL ONE (08:39)
[2020-07-17] MEDS ORDERED: LIDOCAINE 1% (PF) 10MG/ML VIAL SQ ONE (08:54)
[2020-07-17] MEDS ORDERED: HYALURONATE SODIUM INTRAOCULAR 1 EACH SYRINGE (12MG/ML) INTRAOCULA ONE (08:54)
[2020-07-17] MEDS ORDERED: BALANCED SALT IRRIG SOLN COMB2 15 ML IRRIG.SOLN IRRIGATION ONE (08:54)
[2020-07-17] MEDS ORDERED: EPINEPHrine (PF) 0.3 ML in BALANCED SALT IRRIG SOLN COMB2 500 ML IRRIGATION ONE (08:55)
--- NOTE | 2020-07-17 09:12 | P.OP ---
Date of Procedure: 07/17/20 Preoperative Diagnosis: NS & CS Postoperative Diagnosis: same & zonular dehiscence. Procedure(s) Performed: PIOL, OD Implants: [id number] 19.00 13 mm CTR Anesthesia: MAC Surgeon: Ede Bradley Pathology: none sent Condition: stable Disposition: same day Indications for Procedure: blurry vision Operative Findings: no complications
[2020-07-17 09:30] VITALS: BP 142/66; PULSE 56; RESP 18
--- NOTE | 2020-07-18 10:19 | OP ---
OPERATIVE REPORT DATE OF SURGERY: 07/17/2020. PROCEDURE: Phacoemulsification of cataract with intraocular lens implant of the right eye. PREOPERATIVE DIAGNOSIS: Nuclear sclerosis, cortical sclerosis. POSTOPERATIVE DIAGNOSIS: Nuclear sclerosis, cortical sclerosis with zonular dehiscence. SURGEON: Dr. Ede Bradley. ANESTHESIA: Topical. ESTIMATED BLOOD LOSS: None. SPECIMEN TAKEN: None. NARRATIVE: After obtaining the proper consent, the patient was brought to the operating room. There she was placed on cardiac monitoring, prepped and draped in the usual sterile manner. She was approached from her right temporal side and at the 11 o'clock position, an MVR blade was used to create a paracentesis port. Through this opening 1% Xylocaine MPF 50-50 mix with balanced salt solution was injected into the anterior chamber. This was followed by stabilization of the anterior chamber with Amvisc. At the 9 o'clock position, a 2.5 mm keratome was used to create a self-sealing corneal flap incision. Through this opening, a cystotome was introduced to begin a continuous tear capsulorrhexis which was completed using the Utrata forceps. Hydrodissection and hydrodelineation of the lens were accomplished with balanced salt solution. Phacoemulsification of the lens utilizing phaco chop was accomplished in 9.14 seconds at 11% power. During the course of the removal, the nuclear and remaining cortical material was identified that there was a 3 hour dehiscence of the zonules between approximately 4 and 7 o'clock on the patient's eye. Following installation of the of the lidocaine MPF, a 13 mm capsular tension ring was placed into the patient's eye into the equator of the bag without difficulty. The lens capsule appeared to be reasonably stable and therefore the balance of the remaining cortical material was removed under irrigation and aspiration without any undue difficulties. Additional Amvisc was then used to stabilize the capsular bag and a Bausch and Lomb MX 60E 19.0 diopter posterior chamber intraocular lens was then inserted into the capsular bag without difficulty. The remaining viscoelastic was removed from in and around the intra-ocular lens and the eye was brought to normal intraocular pressure through the paracentesis port with balanced salt solution. The incisions were confirmed watertight. She then received 2 drops of 0.5% timolol followed by 2 drops of moxifloxacin, was then lightly patched and shielded in the usual manner. There were no complications from the procedure. She tolerated the procedure well, was returned to outpatient recovery in good condition. VEL / COSMEN: [id number] /
== END 2020-07-17 09:46 | disposition home or self-care (01) ==
LOC: OR 07:18
PROVIDERS: ATTEND Ophthalmology
DX: H25.11 Age-related nuclear cataract, right eye (principal); H25.011 Cortical age-related cataract, right eye; H27.8 Other specified disorders of lens; H52.4 Presbyopia; K21.9 Gastro-esophageal reflux disease without esophagitis; F41.9 Anxiety disorder, unspecified; J45.909 Unspecified asthma, uncomplicated; N32.81 Overactive bladder; Z96.1 Presence of intraocular lens; Z98.42 Cataract extraction status, left eye; Z80.3 Family history of malignant neoplasm of breast; Z83.3 Family history of diabetes mellitus; Z83.518 Family history of other specified eye disorder; Z79.899 Other long term (current) drug therapy; Z88.8 Allergy status to other drugs, medicaments and biological substances
CPT/HCPCS: 66982; L8610; C1780; J2250; J0171; J3010; J2001

== ENCOUNTER → 2025-02-27 | Outpatient (CLI) | payer MEDICARE, OTHER ==
--- NOTE | 2025-02-28 07:57 | MM ---
Reason for Exam: Screening (asymptomatic). Last mammogram was performed 2 year(s) and 9 month(s) ago. Patient History: Menarche at age 13. First Full-Term at age 17. Postmenopausal. Mother had breast cancer at or over age 50. Risk Values: Abimbola 5 year model risk: 3.2%. NCI Lifetime model risk: 9.7%. Prior Study Comparison: 06/18/2022 Bilateral Screening Mammogram, [facility]. Tissue Density: There are scattered areas of fibroglandular density. Findings: Analyzed By CAD. Benign appearing vascular calcification bilaterally is redemonstrated. There are additional small scattered benign-appearing round and linear calcifications again seen. Benign-appearing bilateral axillary lymph nodes are present. There is no suspicious new group of microcalcifications or new distortion in either breast. Overall Assessment: Benign, BI-RAD 2 Management: Screening Mammogram of both breasts in 1 year. . Patient should continue monthly self-breast exams. A clinical breast exam by your physician is recommended on an annual basis. This exam should not preclude additional follow-up of suspicious palpable abnormalities. Note on Abimbola scores and lifetime risk: 1. A Abimbola score greater than 3% is considered moderate risk. If this is the case, consider specialist referral to assess eligibility for a risk reducing agent. 2. If overall lifetime risk for the development of breast cancer is 20% or higher, the patient may qualify for future screening with alternating mammogram and breast MRI. [facility], , 02/28/2025 7:54 AM. Electronically signed and approved by: Uche Suarez M.D.
== END | disposition home or self-care (01) ==
LOC: RADMAMWWP 13:42
PROVIDERS: ATTEND Family Medicine
DX: Z12.31 Encounter for screening mammogram for malignant neoplasm of breast (principal); R92.323 Mammographic fibroglandular density, bilateral breasts; R92.1 Mammographic calcification found on diagnostic imaging of breast; Z78.0 Asymptomatic menopausal state; Z80.3 Family history of malignant neoplasm of breast
CPT/HCPCS: 77063; 77067

== ENCOUNTER 2025-04-02 07:58 | Day surgery (SDC) | payer MEDICARE, OTHER ==
[2025-03-29 15:53] VITALS: BMI 32.9
[~2025-04-02 07:58] MED LIST changes: -LACTATED RINGERS 1,000 ML IV SCH; +LIDOCAINE 1% (10MG/ML) FOR IV START INTRADERMA PRN; -MOXIFLOXACIN HCL 0.5% DROPS 3 ML BTL OP ONE; -ONDANSETRON 4 MG/2 ML VIAL IVP PRN; -TETRACAINE 0.5% OPHTH (PF) DROPS 4 ML BTL OP ONE; -TIMOLOL 0.5% OPHTH DROPS 5 ML BTL OP ONE; -TOBRA-DEXAMET 0.3-0.1% OPHTH DROPS 2.5 ML BTL OPHTHALMIC NR; -fentaNYL (PF) 50 MCG/ML 2 ML AMP IV PRN
[2025-04-02 08:27] VITALS: BP 145/79; PULSE 83; RESP 16; TEMP 97.3
[2025-04-02] MEDS: LACTATED RINGERS 1,000 ML IV SCH (08:33)
[2025-04-02] MEDS: IV FLUID CONTINUATION 1,000 ML IV ONE (08:34)
== END 2025-04-02 08:59 | disposition home or self-care (01) ==
LOC: ORWHC2ENDO 07:58
PROVIDERS: ATTEND Surgery
DX: Z12.11 Encounter for screening for malignant neoplasm of colon (principal); Z53.21 Procedure and treatment not carried out due to patient leaving prior to being seen by health care provider